=== PATIENT | male | born 1995 | race Caucasian/White ===

== ENCOUNTER 2017-11-05 18:09 | Emergency (ER) | payer SELFPAY | END 2017-11-05 19:13 | disposition left against medical advice (07) | LOC: ERS 18:09 | DX: Z53.21 Procedure and treatment not carried out due to patient leaving prior to being seen by health care provider (principal) ==

== ENCOUNTER 2020-05-17 22:07 | Inpatient (IN) | payer OTHER ==
[2020-05-17] MEDS ORDERED: Acetaminophen 500 MG TAB ONE (22:21)
[2020-05-17 23:07] LABS: #Basophils 0.1 thou/uL (0.0-0.2); #Eosinphils 0.2 thou/uL (0.0-0.7); #Lymphocytes 2.3 thou/uL (1.20-3.40); #Monocytes 1.5 thou/uL (0.11-0.59); #Neutrophils 12.2 thou/uL (1.40-6.50); %Basophils 0.8 % (0.0-1.0); %Lymphocytes 14.1 % (21.0-51.0); %Monocytes 9.5 % (0.0-10.0); %Neutrophils 74.7 % (42.0-75.0); Hemoglobin 14.6 g/dL (14.0-18.0); Mean Corpuscular HGB CONC 34.4 g/dL (32.0-36.0); Mean Corpuscular Hemoglobin 32.6 pg (27.0-31.0); Mean Corpuscular Volume 94.7 fL (78.0-98.0); Mean Platelet Volume 9.5 fL (7.4-10.4); Platelet Count 366 thou/uL (130-400); RBC Distribution Width 11.6 % (11.5-14.5); Red Blood Cell (RBC) Count 4.47 mill/uL (4.70-6.10); White Blood Cell (WBC) Count 16.3 thou/uL (4.8-10.8)
--- NOTE | 2020-05-17 23:30 | RAD ---
XR Chest 1 View Portable History: Fever Comparison: Radiograph 2014 Findings: Lungs are clear. No pneumothorax. No effusion. Cardiac silhouette and mediastinal contours are within normal limits. Impression: No acute intrathoracic abnormality.
[2020-05-17 23:34] LABS: ALT (SGPT) 31 U/L (8-55); AST (SGOT) 27 U/L (5-34); Albumin 4.6 g/dL (3.5-5.0); Alkaline Phosphatase 106 U/L (40-110); Anion Gap 17 mmol/L (10-20); BUN (Urea Nitrogen) 14 mg/dL (8.9-20.6); Bilirubin, Total 0.2 mg/dL (0.2-1.2); Calc. Creatinine Clearance 0 mL/min (70-130); Calcium 9.7 mg/dL (7.8-10.44); Carbon Dioxide 24 mmol/L (22-29); Chloride 104 mmol/L (98-107); Estimated GFR-MDRD 59; Globulin 3.8 g/dL (2.4-3.5); Glucose 99 mg/dL (70-105); Potassium 4.5 mmol/L (3.5-5.1); Protein, Total 8.4 g/dL (6.0-8.3); Sodium 140 mmol/L (136-145)
[2020-05-17 23:36] LABS: Lactic Acid 1.8 mmol/L (0.5-2.2)
[2020-05-18 00:29] LABS: HIV (1/2) Antibody/Antigen Non-Reactive (NonReactive); HIV 1/2 INDEX 0.26 S/CO (<1.00)
[2020-05-18] MEDS ORDERED: Ibuprofen 800 MG TAB ONE (00:38)
[2020-05-18] MEDS ORDERED: Acyclovir 800 mg Tablet PO SCH (00:45)
[2020-05-18 01:20] LABS: Bilirubin Negative (Negative); Blood, Urine Negative (Negative); Glucose, Urine (Dipstick) Negative (Negative); Ketone, Urine Negative (Negative); Leukocyte Negative (Negative); Nitrite Negative (Negative); Protein, Urine (Dipstick) Negative (Neg-Trace); Urobilinogen 0.2 mg/dL (Less than 2); pH, Urine 7.5 (5.0-9.0)
[2020-05-18 01:21] LABS: Clarity Clear (Clear)
[2020-05-18] MEDS ORDERED: Acetaminophen 500 MG TAB ONE (05:12)
[2020-05-18 06:03] VITALS: BMI 29.3
[2020-05-18] MEDS ORDERED: Senokot S 8.6-50 MG TAB PO PRN (07:57)
[2020-05-18] MEDS: Sodium Chloride 0.9% 1,000 ML IV SCH ×2 (08:20→18:32)
[2020-05-18] MEDS: Acetaminophen 325 MG TAB PO PRN ×3 (08:21→20:20)
[2020-05-18] MEDS: Enoxaparin Sodium 40 MG/0.4 ML SYRINGE SC SCH (08:21)
[2020-05-18] MEDS ORDERED: Ondansetron PF 4 MG/2 ML Vial IVP PRN (08:58)
[2020-05-18] MEDS ORDERED: Calamine/Zinc Oxide 177 ML LOTION TP PRN (10:40)
[2020-05-18] MEDS ORDERED: Ibuprofen 200 MG TAB PO PRN (11:02)
[2020-05-18] MEDS ORDERED: Vancomycin 1.5 GRAM/300 ML BAG 1.5 GM in Premix Bag 1 BAG IVPB SCH (11:30)
[2020-05-18] MEDS ORDERED: Ibuprofen 200 MG TAB PO SCH (11:30)
[2020-05-18] MEDS ORDERED: [UNRECOGNIZED DRUG - REMARK] IVPB PRN (11:39)
[2020-05-18] MEDS ORDERED: SODIUM CHLORIDE 0.9% IVPB SCH (14:00)
[2020-05-18] MEDS ORDERED: ACYCLOVIR SODIUM IVPB SCH (14:00)
[2020-05-18] MEDS ORDERED: valACYclovir 500 MG TAB PO SCH ×2 (15:00)
[2020-05-18] MEDS ORDERED: Sodium Chloride 0.9% 1,000 ML IV SCH (16:15)
[2020-05-18] MEDS: Ibuprofen 600 MG TAB PO PRN (18:51)
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
[2020-05-18] MEDS ORDERED: methylPREDNISolone Sod Succ 40 MG VIAL IVP SCH (19:30)
[2020-05-18] MEDS: SODIUM CHLORIDE 0.9% IVPB SCH (20:20)
[2020-05-18] MEDS: Azithromycin 500 MG in Sodium Chloride 0.9% 250 ML 250 ML IVPB SCH (20:20)
[2020-05-18] MEDS: ACYCLOVIR SODIUM IVPB SCH (20:20)
[2020-05-18] MEDS ORDERED: Vancomycin HCl 1.25 GM in Sodium Chloride 0.9% 250 ML 250 ML IVPB SCH (21:00)
[2020-05-18] MEDS: Vancomycin 1.5 GRAM/300 ML BAG 1.5 GM in Premix Bag 1 BAG IVPB SCH (23:49)
[2020-05-19] MEDS: Acetaminophen 325 MG TAB PO PRN ×4 (01:01→19:53)
[2020-05-19] MEDS ORDERED: cefTRIAXone\\ROCEPHIN 2 GM in Sodium Chloride 0.9% 100 ML IVPB SCH (02:00)
[2020-05-19] MEDS: Sodium Chloride 0.9% 1,000 ML IV SCH ×4 (03:43→22:11)
[2020-05-19] MEDS: Ibuprofen 600 MG TAB PO PRN ×3 (03:53→15:14)
[2020-05-19] MEDS: ACYCLOVIR SODIUM IVPB SCH ×3 (05:13→22:10)
[2020-05-19] MEDS: SODIUM CHLORIDE 0.9% IVPB SCH ×3 (05:13→22:10)
[2020-05-19 05:23] LABS: ALT (SGPT) 24 U/L (8-55); AST (SGOT) 21 U/L (5-34); Albumin 3.6 g/dL (3.5-5.0); Alkaline Phosphatase 69 U/L (40-110); Anion Gap 14 mmol/L (10-20); BUN (Urea Nitrogen) 10 mg/dL (8.9-20.6); Bilirubin, Total 0.3 mg/dL (0.2-1.2); Calc. Creatinine Clearance 127 mL/min (70-130); Calcium 8.1 mg/dL (7.8-10.44); Carbon Dioxide 21 mmol/L (22-29); Chloride 108 mmol/L (98-107); Estimated GFR-MDRD 65; Globulin 2.9 g/dL (2.4-3.5); Glucose 130 mg/dL (70-105); Potassium 3.7 mmol/L (3.5-5.1); Protein, Total 6.5 g/dL (6.0-8.3); Sodium 139 mmol/L (136-145)
[2020-05-19 06:28] LABS: Band 37 % (5-11); Hemoglobin 12.7 g/dL (14.0-18.0); Lymphocytes 6 % (21-51); MDiff Complete? YES; Mean Corpuscular HGB CONC 31.6 g/dL (32.0-36.0); Mean Corpuscular Hemoglobin 30.1 pg (27.0-31.0); Mean Corpuscular Volume 95.2 fL (78.0-98.0); Mean Platelet Volume 9.7 fL (7.4-10.4); Monocytes 3 % (0-10); Neutrophil 54 % (42-75); Platelet Count 299 thou/uL (130-400); RBC Distribution Width 12.1 % (11.5-14.5); Red Blood Cell (RBC) Count 4.22 mill/uL (4.70-6.10); White Blood Cell (WBC) Count 38.3 thou/uL (4.8-10.8)
[2020-05-19] MEDS: Enoxaparin Sodium 40 MG/0.4 ML SYRINGE SC SCH (08:15)
[2020-05-19] MEDS ORDERED: methylPREDNISolone Sod Succ 40 MG VIAL IVP SCH (09:00)
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
[2020-05-19] MEDS: Vancomycin 1.5 GRAM/300 ML BAG 1.5 GM in Premix Bag 1 BAG IVPB SCH (13:12)
[2020-05-19] MEDS: methylPREDNISolone Sod Succ 40 MG VIAL IVP SCH ×2 (13:13→22:07)
[2020-05-19] MEDS ORDERED: Lidocaine 1% (PF) 30 ML VIAL SC SCH (15:30)
[2020-05-19] MEDS ORDERED: Lidocaine 1% (PF) 30 ML VIAL ONE (15:31)
[2020-05-19] MEDS ORDERED: Lidocaine 1% w/Epinephrine 1:100K 20 ML VIAL IJ SCH (15:45)
[2020-05-19] MEDS ORDERED: Aluminum & Magnesium Hydroxide 60 ML, Lidocaine 2% Viscous Solution 30 ML, diphenhydrAM... SSW PRN (16:07)
[2020-05-19 16:08] LABS: SARS-CoV-2 MS2 Positive; SARS-CoV-2 N Gene Negative; SARS-CoV-2 S Gene Negative; SARS-CoV-2 orf1ab Negative
--- NOTE | 2020-05-19 16:09 | PDOC.HOSPP ---
- Subjective Encounter Date: 05/19/20 Encounter Time: 16:07 Subjective: pt up in bed has worsening lesions all over - Objective Vital Signs & Weight: Vital Signs (12 hours) Temp Pulse Resp BP Pulse Ox 05/19/20 15:54 101.9 F H 05/19/20 15:10 102.0 F H 126 H 18 122/56 L 98 05/19/20 13:30 103.1 F H 123 H 18 117/57 L 98 05/19/20 10:20 99.3 F 05/19/20 08:40 101.1 F H 121 H 20 133/83 99 05/19/20 08:05 99 05/19/20 05:15 100.9 F H Weight Weight 235 lb I&O: 05/18/20 05/19/20 05/20/20 06:59 06:59 06:59 Intake Total 250 Output Total 1999 Balance -1750 Result Diagrams: 05/19/20 04:44 05/19/20 04:44 Hospitalist ROS - Review of Systems Cardiovascular: denies: chest pain, palpitations, orthopnea, paroxysmal noc. dyspnea, edema, light headedness, other Gastrointestinal: denies: nausea, vomiting, abdominal pain, diarrhea, constipation, melena, hematochezia, other Genitourinary: denies: dysuria, frequency, incontinence, hematuria, retention, other - Medication Medications: Active Medications Generic Name Dose Route Start Last Admin Trade Name Freq PRN Reason Stop Dose Admin Acetaminophen 650 mg 05/18/20 07:57 05/19/20 13:32 Tylenol PO 650 mg Q4H PRN Administration Headache/Fever/Mild Pain (1-3) Enoxaparin Sodium 40 mg 05/18/20 09:00 05/19/20 08:15 Lovenox SC 40 mg 0900 YASMANI Administration Azithromycin 500 mg/ Sodium 250 mls @ 250 mls/hr 05/18/20 20:00 05/18/20 20: 20 Chloride IVPB 250 mls Q24HR YASMANI Administration Acyclovir Sodium 845 mg/ 266.9 mls @ 266.9 mls/hr 05/18/20 22:00 05/19/20 15: 02 Sodium Chloride IVPB 266.9 mls Q8HR YASMANI Administration Vancomycin HCl 1.5 gm/ Device 300 mls @ 200 mls/hr 05/18/20 23:59 05/19/20 13 :12 IVPB 300 mls 1200,2359 YASMANI Administration Sodium Chloride 1,000 mls @ 150 mls/hr 05/19/20 06:45 05/19/20 13:33 Normal Saline 0.9% IV Not Given .Q6H40M YASMANI Ibuprofen 600 mg 05/18/20 18:18 05/19/20 15:14 Motrin PO 600 mg Q6H PRN Administration Fever > 101 Methylprednisolone Sodium Succinate 20 mg 05/19/20 14:00 05/19/20 13:13 Solu-Medrol IVP 20 mg Q8HR YASMANI Administration Sodium Chloride 10 ml 05/18/20 09:00 05/19/20 08:16 Flush - Normal Saline IVF 10 ml Q12HR YASMANI Administration - Exam Neck: negative: supple, symmetric, no JVD, no thyromegaly, no lymphadenopathy, no carotid bruit, JVD Heart: negative: RRR, no murmur, no gallops, no rubs, normal peripheral pulses, irregular, diminshed peripheral pulses, murmur present, II/IV, III/IV Respiratory: negative: CTAB, no wheezes, no rales, no ronchi, normal chest expansion, no tachypnea, normal percussion, rales, rhonchi, tachypneic, wheezes Gastrointestinal: negative: soft, non-tender, non-distended, normal bowel sounds , no palpable masses, no hepatomegaly, no splenomegaly, no bruit, no guarding, no rigidity, tender to palpation, distended, diminished bowl sounds, voluntary guarding Skin - other findings: pustules all over Hosp A/P (1) PLEVA (pityriasis lichenoides et varioliformis acuta) Code(s): L41.0 - PITYRIASIS LICHENOIDES ET VARIOLIFORMIS ACUTA Status: Acute (2) Sepsis Code(s): A41.9 - SEPSIS, UNSPECIFIED ORGANISM Status: Acute (3) Sinus tachycardia Code(s): R00.0 - TACHYCARDIA, UNSPECIFIED Status: Acute (4) Rash Code(s): R21 - RASH AND OTHER NONSPECIFIC SKIN ERUPTION Status: Acute - Plan will start pt on iv pain meds. will continue fluids for now. unable to get a skin biopsy today will get one on Friday. I spoke with residents who will get a skin biopsy on Friday. will continue abx for now. will continue vanco/azith and steroids.
[2020-05-19] MEDS: Morphine 4 MG/ML VIAL SLOW IVP PRN ×2 (16:57→21:01)
[2020-05-19] MEDS: Aluminum & Magnesium Hydroxide 60 ML, Lidocaine 2% Viscous Solution 30 ML, diphenhydrAM... SSW PRN ×2 (16:58→21:02)
--- NOTE | 2020-05-19 17:10 | PRG ---
DATE OF SERVICE: 05/19/2020 SUBJECTIVE: Mr. Merida is feeling a lot of pain and pruritus. The pain is mostly in the throat with difficulty swallowing. He denies headaches. No difficulty breathing. No abdominal pain. Voiding without difficulty. OBJECTIVE: VITAL SIGNS: Still continues to have temperature elevation up to 103, blood pressure 120/56, pulse 126, respirations 18, O2 saturation 98% SKIN: With diffuse exanthematous pustulosis as well as enanthem. LUNGS: Clear. HEART: S1 and S2. Regular rate. ABDOMEN: Soft. Not distended or tender. EXTREMITIES: Moves extremities equally. LABORATORY DATA: White cell count is 38,000, hemoglobin 12.7, platelets 299 with 37% bands. Sodium 139, creatinine 1.33. The patient has had 2 COVID test negative. Biopsy is pending. ASSESSMENT AND DISCUSSION: Acute pustular skin eruption with erythema, leukemoid reaction, and fever. 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 He took it for about a week about 10 days before admission, and a few days before, the rash developed. This makes it very likely that what he has is actually acute generalized exanthematous pustulosis or AGEP. Valproic acid could be the mood stabilizer, that was given to him, and it has been associated with this sort of reaction. The drug has been discontinued, and we will maintain the corticosteroids and the antimicrobial therapy waiting on the assays submitted and continue IV fluids. So, PLEVA is less likely. Job ID: [id number]
--- NOTE | 2020-05-19 18:40 | PDOC.EVN ---
Event Note - Event Note Event Note: spoke with Dr Laguna apparently pt took some pink pill which most likely is valporic acid. pt was afraid to express this since he did not want to get in trouble.
[2020-05-19] MEDS: Azithromycin 500 MG in Sodium Chloride 0.9% 250 ML 250 ML IVPB SCH (21:03)
[2020-05-19 23:31] LABS: Vancomycin, Trough 9.6 ug/mL
[2020-05-20] MEDS: Vancomycin 1.5 GRAM/300 ML BAG 1.5 GM in Premix Bag 1 BAG IVPB SCH ×4 (00:18→23:44)
[2020-05-20] MEDS: Morphine 4 MG/ML VIAL SLOW IVP PRN ×5 (01:13→19:20)
[2020-05-20] MEDS: Ibuprofen 600 MG TAB PO PRN ×2 (01:13→23:51)
[2020-05-20] MEDS: Aluminum & Magnesium Hydroxide 60 ML, Lidocaine 2% Viscous Solution 30 ML, diphenhydrAM... SSW PRN ×5 (01:14→22:05)
[2020-05-20] MEDS: Acetaminophen 325 MG TAB PO PRN ×3 (01:24→15:07)
[2020-05-20] MEDS: Sodium Chloride 0.9% 1,000 ML IV SCH ×4 (04:42→22:06)
[2020-05-20 05:01] LABS: Anion Gap 11 mmol/L (10-20); BUN (Urea Nitrogen) 11 mg/dL (8.9-20.6); Calc. Creatinine Clearance 158 mL/min (70-130); Calcium 8.3 mg/dL (7.8-10.44); Carbon Dioxide 22 mmol/L (22-29); Chloride 109 mmol/L (98-107); Estimated GFR-MDRD 84; Glucose 130 mg/dL (70-105); Sodium 138 mmol/L (136-145)
[2020-05-20] MEDS: methylPREDNISolone Sod Succ 40 MG VIAL IVP SCH (05:08)
[2020-05-20 05:39] LABS: Band 38 % (5-11); Hemoglobin 12.2 g/dL (14.0-18.0); Lymphocytes 7 % (21-51); MDiff Complete? YES; Mean Corpuscular HGB CONC 32.3 g/dL (32.0-36.0); Mean Corpuscular Hemoglobin 31.3 pg (27.0-31.0); Mean Corpuscular Volume 96.7 fL (78.0-98.0); Mean Platelet Volume 9.8 fL (7.4-10.4); Metamyelocyte 1 % (0-0); Monocytes 5 % (0-10); Neutrophil 49 % (42-75); Platelet Count 251 thou/uL (130-400); Platelet Morphology Comment Appears Adequate; RBC Distribution Width 12.2 % (11.5-14.5); Red Blood Cell (RBC) Count 3.89 mill/uL (4.70-6.10); White Blood Cell (WBC) Count 28.1 thou/uL (4.8-10.8)
[2020-05-20] MEDS: ACYCLOVIR SODIUM IVPB SCH ×2 (05:58→22:04)
[2020-05-20] MEDS: SODIUM CHLORIDE 0.9% IVPB SCH ×2 (05:58→22:04)
[2020-05-20] MEDS: Enoxaparin Sodium 40 MG/0.4 ML SYRINGE SC SCH (09:26)
[2020-05-20] MEDS: cefTRIAXone\\ROCEPHIN 2 GM in Sodium Chloride 0.9% 100 ML IVPB SCH (11:10)
[2020-05-20] MEDS ORDERED: SODIUM CHLORIDE 0.9% IVPB SCH ×3 (14:00→22:00)
[2020-05-20] MEDS ORDERED: ACYCLOVIR SODIUM IVPB SCH ×3 (14:00→22:00)
--- NOTE | 2020-05-20 16:13 | PDOC.HOSPP ---
- Subjective Encounter Date: 05/20/20 Encounter Time: 16:09 Subjective: THe patient states he has sore throat, difficulty eating. He did have fever prior to admission. He reports cold sores in the past, and used to get them occasionally every few years. He states that prior to admission he did have a lesion on his face and showered normally and used the same towel on multiple parts of his body he reports itching, burning and tingling - Objective Vital Signs & Weight: Vital Signs (12 hours) Temp Pulse Resp BP Pulse Ox 05/20/20 11:20 98.0 F 101 H 19 132/79 97 05/20/20 09:45 98.2 F 101 H 20 124/65 95 Weight Weight 235 lb I&O: 05/19/20 05/20/20 05/21/20 06:59 06:59 06:59 Intake Total 250 5945 Output Total 1999 5300 Balance -1750 645 Result Diagrams: 05/20/20 04:20 05/20/20 04:20 Hospitalist ROS - Medication Medications: Active Medications Generic Name Dose Route Start Last Admin Trade Name Freq PRN Reason Stop Dose Admin Acetaminophen 650 mg 05/18/20 07:57 05/20/20 15:07 Tylenol PO 650 mg Q4H PRN Administration Headache/Fever/Mild Pain (1-3) Al Hydroxide/Mg Hydroxide 60 0 ml 05/19/20 16:30 05/20/20 11:10 ml/ Lidocaine HCl 30 ml/ SSW 10 ml Diphenhydramine HCl 75 mg PRN PRN Administration Mouth Irritation Enoxaparin Sodium 40 mg 05/18/20 09:00 05/20/20 09:26 Lovenox SC 40 mg 0900 YASMANI Administration Azithromycin 500 mg/ Sodium 250 mls @ 250 mls/hr 05/18/20 20:00 05/19/20 21: 03 Chloride IVPB 250 mls Q24HR YASMANI Administration Sodium Chloride 1,000 mls @ 150 mls/hr 05/19/20 06:45 05/20/20 15:06 Normal Saline 0.9% IV 1,000 mls .Q6H40M YASMANI Administration Ceftriaxone Sodium 2 gm/ 100 mls @ 200 mls/hr 05/20/20 09:00 05/20/20 11:10 Sodium Chloride IVPB 100 mls 0900 YASMANI Administration Vancomycin HCl 1.5 gm/ Device 300 mls @ 200 mls/hr 05/19/20 23:59 05/20/20 09 :26 IVPB 300 mls 0800,1600,2359 YASMANI Administration Ibuprofen 600 mg 05/18/20 18:18 05/20/20 01:13 Motrin PO 600 mg Q6H PRN Administration Fever > 101 Morphine Sulfate 4 mg 05/19/20 15:58 05/20/20 15:16 Morphine SLOW IVP 4 mg Q4H PRN Administration Moderate Pain (4-6) Sodium Chloride 10 ml 05/18/20 09:00 05/20/20 09:27 Flush - Normal Saline IVF 10 ml Q12HR YASMANI Administration Sodium Chloride 10 ml 05/18/20 08:03 05/20/20 05:08 Flush - Normal Saline IVF 10 ml PRN PRN Administration Saline Flush - Exam General Appearance: NAD, awake alert Eye: PERRL, anicteric sclera ENT: normocephalic atraumatic, no oropharyngeal lesions Neck: supple, no JVD Heart: RRR, no murmur, no gallops, no rubs Respiratory: CTAB, no wheezes, no rales, no ronchi, no tachypnea Gastrointestinal: soft, non-tender, non-distended Extremities: no cyanosis, no clubbing, no edema Skin - other findings: diffuse vesicular/pustular lesions, erythema all over body Neurological: cranial nerve grossly intact, normal sensation to touch, no focal deficits, no new deficit Musculoskeletal: normal tone, normal strength, no muscle wasting Hosp A/P - Plan This is 24 year old male who presents with fever, decreased appetite, diffuse pustuar/vesicular rash #Diffuse pustular/vesicular rash - possibly shingles/chickenpox vs herpes gladiatorum vs impetigo/bacterial infection vs pemphigus? - continue IV acyclovir. WBC improving - will discontinue IV steroids since patient reports no improvement - continue empiric vancomycin, ceftriaxone and azithromycin - send HSV PCR and VZV pcr and tzank smear. Try to unroof vesicle if possible - patient to get punch biopsy on Friday #Leukocytosis - improving, continue antiviral and antibiotics #Anemia - stable, hemoglobin 12 #Acute Kidney Injury - resolved
[2020-05-20] MEDS: Azithromycin 500 MG in Sodium Chloride 0.9% 250 ML 250 ML IVPB SCH (20:15)
[2020-05-20] MEDS ORDERED: Fentanyl 100 MCG/2 ML VIAL SLOW IVP PRN (21:15)
[2020-05-20 23:26] LABS: Vancomycin, Trough 19.6 ug/mL
[2020-05-21] MEDS: Morphine 4 MG/ML VIAL SLOW IVP PRN ×6 (00:16→21:34)
[2020-05-21 04:45] LABS: Hemoglobin 12.9 g/dL (14.0-18.0); Mean Corpuscular HGB CONC 33.9 g/dL (32.0-36.0); Mean Corpuscular Hemoglobin 32.4 pg (27.0-31.0); Mean Corpuscular Volume 95.4 fL (78.0-98.0); Mean Platelet Volume 9.3 fL (7.4-10.4); Platelet Count 291 thou/uL (130-400); RBC Distribution Width 12.3 % (11.5-14.5); Red Blood Cell (RBC) Count 3.98 mill/uL (4.70-6.10); White Blood Cell (WBC) Count 19.5 thou/uL (4.8-10.8)
[2020-05-21 05:07] LABS: Anion Gap 14 mmol/L (10-20); BUN (Urea Nitrogen) 14 mg/dL (8.9-20.6); Calc. Creatinine Clearance 129 mL/min (70-130); Calcium 8.3 mg/dL (7.8-10.44); Carbon Dioxide 22 mmol/L (22-29); Chloride 104 mmol/L (98-107); Estimated GFR-MDRD 66; Glucose 109 mg/dL (70-105); Potassium 3.9 mmol/L (3.5-5.1); Sodium 136 mmol/L (136-145)
[2020-05-21] MEDS: Sodium Chloride 0.9% 1,000 ML IV SCH ×2 (05:24→16:53)
[2020-05-21] MEDS: ACYCLOVIR SODIUM IVPB SCH ×2 (06:39→15:05)
[2020-05-21] MEDS: SODIUM CHLORIDE 0.9% IVPB SCH ×2 (06:39→15:05)
[2020-05-21] MEDS: Enoxaparin Sodium 40 MG/0.4 ML SYRINGE SC SCH (08:55)
[2020-05-21] MEDS: Vancomycin 1.5 GRAM/300 ML BAG 1.5 GM in Premix Bag 1 BAG IVPB SCH (08:55)
[2020-05-21] MEDS: Ibuprofen 600 MG TAB PO PRN ×3 (08:55→23:49)
[2020-05-21] MEDS ORDERED: diphenhydrAMINE 25 MG in Sodium Chloride 0.9% 50 ML IVPB SCH (09:45)
[2020-05-21] MEDS: Acetaminophen 325 MG TAB PO PRN ×2 (11:51→21:35)
--- NOTE | 2020-05-21 12:12 | RAD ---
CHEST 1 VIEW: HISTORY: Hypoxia. COMPARISON: 05/17/2020 exam. FINDINGS: Heart size and mediastinum are within normal limits. The lungs appear clear of any infiltrative proc ess. IMPRESSION: No active intrathoracic disease. POS: MIKE
[2020-05-21] MEDS ORDERED: Pantoprazole 40 MG VIAL IVP SCH (12:45)
[2020-05-21] MEDS: cefTRIAXone\\ROCEPHIN 2 GM in Sodium Chloride 0.9% 100 ML IVPB SCH (13:09)
--- NOTE | 2020-05-21 15:10 | PDOC.HOSPP ---
- Subjective Encounter Date: 05/21/20 Encounter Time: 12:00 Subjective: The patient was noted to be slightly short of breath this morning, required nasal cannula. He was also tachycardic Patient feels his sore throat has improved some. He denies any itching. He still has trouble swallowing. He had low grade temp of 100.3 today He denies new sexual partners, states he has been in assisted for 9 months The patient states he never took any cell mates medication, denies taking valproic acid - Objective Vital Signs & Weight: Vital Signs (12 hours) Temp Pulse Resp BP Pulse Ox 05/21/20 11:50 100.3 F H 112 H 16 108/55 L 97 05/21/20 09:20 99.8 F H 138 H 20 136/75 92 L 05/21/20 04:15 98.7 F 109 H 21 H 130/78 94 L Weight Weight 235 lb I&O: 05/20/20 05/21/20 05/22/20 06:59 06:59 06:59 Intake Total 5945 Output Total 5300 Balance 645 Result Diagrams: 05/21/20 04:33 05/21/20 04:33 Hospitalist ROS - Review of Systems Constitutional: reports: fever Respiratory: denies: cough, dry, shortness of breath, pleuritic pain - Medication Medications: Active Medications Generic Name Dose Route Start Last Admin Trade Name Freq PRN Reason Stop Dose Admin Acetaminophen 650 mg 05/18/20 07:57 05/21/20 11:51 Tylenol PO 650 mg Q4H PRN Administration Headache/Fever/Mild Pain (1-3) Al Hydroxide/Mg Hydroxide 60 0 ml 05/19/20 16:30 05/20/20 22:05 ml/ Lidocaine HCl 30 ml/ SSW 10 ml Diphenhydramine HCl 75 mg PRN PRN Administration Mouth Irritation Enoxaparin Sodium 40 mg 05/18/20 09:00 05/21/20 08:55 Lovenox SC 40 mg 0900 YASMANI Administration Azithromycin 500 mg/ Sodium 250 mls @ 250 mls/hr 05/18/20 20:00 05/20/20 20: 15 Chloride IVPB 250 mls Q24HR YASMANI Administration Sodium Chloride 1,000 mls @ 150 mls/hr 05/19/20 06:45 05/21/20 05:24 Normal Saline 0.9% IV Not Given .Q6H40M YASMANI Ceftriaxone Sodium 2 gm/ 100 mls @ 200 mls/hr 05/20/20 09:00 05/21/20 13:09 Sodium Chloride IVPB 100 mls 0900 YASMANI Administration Vancomycin HCl 1.5 gm/ Device 300 mls @ 200 mls/hr 05/19/20 23:59 05/21/20 08 :55 IVPB 300 mls 0800,1600,2359 YASMANI Administration Acyclovir Sodium 845 mg/ 266.9 mls @ 228.337 mls/hr 05/20/20 22:00 05/21/20 15:05 Sodium Chloride IVPB 266.9 mls Q8HR YASMANI Administration Ibuprofen 600 mg 05/18/20 18:18 05/21/20 08:55 Motrin PO 600 mg Q6H PRN Administration Fever > 101 Morphine Sulfate 4 mg 05/19/20 15:58 05/21/20 13:09 Morphine SLOW IVP 4 mg Q4H PRN Administration Moderate Pain (4-6) Sodium Chloride 10 ml 05/18/20 09:00 05/21/20 13:43 Flush - Normal Saline IVF 10 ml Q12HR YASMANI Administration Sodium Chloride 10 ml 05/18/20 08:03 05/20/20 05:08 Flush - Normal Saline IVF 10 ml PRN PRN Administration Saline Flush - Exam General Appearance: NAD, awake alert Eye: PERRL, anicteric sclera ENT: normocephalic atraumatic, no oropharyngeal lesions Neck: no JVD Heart: RRR, no rubs Respiratory: no rales Gastrointestinal: soft, non-tender, non-distended, normal bowel sounds Extremities: no cyanosis, no clubbing, no edema Extremities - other findings: skin appears more of a darker red Skin - other findings: multiple pustular lesions on face starting to dry. Erythema multiforme leg Musculoskeletal: normal tone, normal strength, no muscle wasting Psychiatric: A&O x 3 Hosp A/P - Plan This is 24 year old male who presents with fever, decreased appetite, diffuse pustuar/vesicular rash #Diffuse pustular/vesicular rash - possibly shingles/chickenpox vs herpes gladiatorum vs impetigo/bacterial infection vs pemphigus? - continue IV acyclovir. WBC improving to 19 - stopped steroids. Will add benadryl prn and claritin prn for itching - HSV PCR/VZV PCR and Tzanck smear pending. HSV serology pending. Will order VZV serology, patient does not recall if he has had chickenpox in the past - bacterial culture shows gram + rods, gram + cocci, gram variable rods. Will follow final culture - will check RPR as well - punch biopsy on Friday Acute hypoxic respiratory failure - repeat chest X ray today normal - will stop IV fluids in case there is component of fluid overload #Odynophagia - likely secondary to viral infection - diet as tolerated #Anemia - stable, hemoglobin 12 - check B12/folate #Acute Kidney Injury - creatinine up to 1.3, will stop IV fluids and reassess Dispo: possibly d/c 1-2 days pending improvement in oral intake and crusting of lesions
[2020-05-21 16:57] LABS: Syphilis Antibody Nonreactive (Nonreactive); Syphilis Antibody Index 0.08 S/CO (<1.00 Non-Reactive)
[2020-05-21 17:05] LABS: Ferritin 641.42 ng/mL (22-322)
--- NOTE | 2020-05-21 17:09 | PRG ---
DATE OF SERVICE: 05/21/2020 SUBJECTIVE: Fuad is feeling little better. He is able to swallow fluids better and solids as well. Skin not itching as much, not burning as much. No diarrhea. Voiding without difficulty. OBJECTIVE: VITAL SIGNS: Still having temperature elevation is 103.2 yesterday at 11:00 p.m., but overall temperature curve has improved significantly and pulse is 112, respiratory rate 16, O2 saturation 97, and BP 108/55. Still diffuse exanthematous pustulosis. LABORATORY DATA: White cell count 19.5, hemoglobin 12.9, and platelets 291. Creatinine is 1.31. He has 2 COVID test negative thus far. Cultures from the face and tonsils are not remarkable, just normal kady. ASSESSMENT AND DISCUSSION: Acute pustular skin eruption likely exanthematous pustulosis due to valproic acid. I think a biopsy is going to be carried out tomorrow to confirm diagnosis. Continue corticosteroids. We will go ahead and discontinued some of the drugs including the acyclovir. I will discontinue azithromycin and vancomycin. Job ID: [id number] [facility]PITALGonzalo
[2020-05-21 19:31] LABS: Amphetamine Not Detected (NotDetected); Barbiturates Screen Not Detected (NotDetected); Benzodiazepine Screen Not Detected (NotDetected); Cocaine Metabolite Screen Not Detected (NotDetected); Medtox Control Line Valid? VALID (VALID); Medtox Reader # READER 4; Methadone Not Detected (NotDetected); Methamphetamine Not Detected (NotDetected); Opiate Screen Detected (NotDetected); Oxycodone Screen Not Detected (NotDetected); Phencyclidine (PCP) Not Detected (NotDetected); THC/Cannabinoid Screen Not Detected (NotDetected); Tricyclic Screen Not Detected (NotDetected)
[2020-05-21] MEDS: Pantoprazole 40 MG VIAL IVP SCH (20:11)
[2020-05-21] MEDS: Aluminum & Magnesium Hydroxide 60 ML, Lidocaine 2% Viscous Solution 30 ML, diphenhydrAM... SSW PRN (20:12)
[2020-05-21 23:42] LABS: Vancomycin, Trough 6.5 ug/mL
[2020-05-22] MEDS: Morphine 4 MG/ML VIAL SLOW IVP PRN ×5 (03:16→21:18)
[2020-05-22] MEDS: Acetaminophen 325 MG TAB PO PRN ×2 (03:33→11:52)
[2020-05-22 04:54] LABS: Hemoglobin 11.7 g/dL (14.0-18.0); Mean Corpuscular HGB CONC 33.1 g/dL (32.0-36.0); Mean Corpuscular Hemoglobin 31.2 pg (27.0-31.0); Mean Corpuscular Volume 94.3 fL (78.0-98.0); Mean Platelet Volume 9.4 fL (7.4-10.4); Platelet Count 252 thou/uL (130-400); RBC Distribution Width 12.6 % (11.5-14.5); Red Blood Cell (RBC) Count 3.75 mill/uL (4.70-6.10); White Blood Cell (WBC) Count 14.4 thou/uL (4.8-10.8)
[2020-05-22 05:17] LABS: Anion Gap 16 mmol/L (10-20); BUN (Urea Nitrogen) 13 mg/dL (8.9-20.6); Calc. Creatinine Clearance 142 mL/min (70-130); Calcium 8.2 mg/dL (7.8-10.44); Carbon Dioxide 21 mmol/L (22-29); Chloride 101 mmol/L (98-107); Estimated GFR-MDRD 74; Glucose 118 mg/dL (70-105); Potassium 3.6 mmol/L (3.5-5.1); Sodium 134 mmol/L (136-145)
[2020-05-22] MEDS: Pantoprazole 40 MG VIAL IVP SCH ×2 (07:45→21:17)
[2020-05-22] MEDS: Enoxaparin Sodium 40 MG/0.4 ML SYRINGE SC SCH (07:45)
[2020-05-22] MEDS: cefTRIAXone\\ROCEPHIN 2 GM in Sodium Chloride 0.9% 100 ML IVPB SCH (07:46)
--- NOTE | 2020-05-22 10:11 | EKG ---
Test Reason : Blood Pressure : / mmHG Vent. Rate : 130 BPM Atrial Rate : 130 BPM P-R Int : 128 ms QRS Dur : 084 ms QT Int : 276 ms P-R-T Axes : 020 037 001 degrees QTc Int : 406 ms Sinus tachycardia Nonspecific ST and T wave abnormality Abnormal ECG When compared with ECG of 25-OCT-2014 22:24, ST now depressed in Inferior leads ST no longer elevated in Anterior leads Nonspecific T wave abnormality now evident in Inferior leads Nonspecific T wave abnormality now evident in Anterior leads Confirmed by MAURICIO ALLEN (2) on 05/22/2020 10:11:13 AM Referred By: CHASTITY Confirmed By:MAURICIO ALLEN
[2020-05-22] MEDS ORDERED: SODIUM CHLORIDE 0.9% IVPB SCH ×3 (13:00→23:00)
[2020-05-22] MEDS ORDERED: ACYCLOVIR SODIUM IVPB SCH ×3 (13:00→23:00)
--- NOTE | 2020-05-22 14:55 | PDOC.HOSPP ---
- Subjective Encounter Date: 05/22/20 Encounter Time: 11:00 Subjective: The patient was noted to be in more pain today than yesterday. He is sleeping in his bed huddled up. He spiked fever to 104 at 12:00 He reports burning and tingling pain all over. States the only thing that has helped his pain so far is morphine - Objective Vital Signs & Weight: Vital Signs (12 hours) Temp Pulse Resp BP Pulse Ox 05/22/20 12:00 104.7 F H 138 H 20 133/68 93 L 05/22/20 08:00 99.4 F 103 H 16 125/71 96 05/22/20 06:19 97 05/22/20 03:15 100.2 F H 114 H 16 107/53 L 94 L Weight Weight 235 lb Result Diagrams: 05/22/20 04:41 05/22/20 04:41 Hospitalist ROS - Review of Systems Constitutional: denies: fever, chills - Medication Medications: Active Medications Generic Name Dose Route Start Last Admin Trade Name Freq PRN Reason Stop Dose Admin Acetaminophen 650 mg 05/18/20 07:57 05/22/20 11:52 Tylenol PO 650 mg Q4H PRN Administration Headache/Fever/Mild Pain (1-3) Al Hydroxide/Mg Hydroxide 60 0 ml 05/19/20 16:30 05/21/20 20:12 ml/ Lidocaine HCl 30 ml/ SSW 10 ml Diphenhydramine HCl 75 mg PRN PRN Administration Mouth Irritation Enoxaparin Sodium 40 mg 05/18/20 09:00 05/22/20 07:45 Lovenox SC 40 mg 0900 YASMANI Administration Ceftriaxone Sodium 2 gm/ 100 mls @ 200 mls/hr 05/20/20 09:00 05/22/20 07:46 Sodium Chloride IVPB 100 mls 0900 YASMANI Administration Ibuprofen 600 mg 05/18/20 18:18 05/21/20 23:49 Motrin PO 600 mg Q6H PRN Administration Fever > 101 Morphine Sulfate 4 mg 05/19/20 15:58 05/22/20 11:51 Morphine SLOW IVP 4 mg Q4H PRN Administration Moderate Pain (4-6) Pantoprazole Sodium 40 mg 05/21/20 21:00 05/22/20 07:45 Protonix IVP 40 mg BID YASMANI Administration Sodium Chloride 10 ml 05/18/20 09:00 05/21/20 20:12 Flush - Normal Saline IVF 10 ml Q12HR YASMANI Administration Sodium Chloride 10 ml 05/18/20 08:03 05/20/20 05:08 Flush - Normal Saline IVF 10 ml PRN PRN Administration Saline Flush - Exam General Appearance: NAD, awake alert General - other findings: multiple pustules on face. Lesions appeared more dried up Eye: PERRL, anicteric sclera ENT: normocephalic atraumatic, no oropharyngeal lesions Neck: no JVD Heart: RRR, no murmur, no gallops, no rubs Respiratory: CTAB, no wheezes, no rales, no ronchi Gastrointestinal: soft, non-tender, non-distended, normal bowel sounds Extremities: no cyanosis, no clubbing, no edema Skin - other findings: multiple pustules/vesicles on face and torso. Macular lesion on extremities Hosp A/P - Plan This is 24 year old male who presents with fever, decreased appetite, diffuse pustuar/vesicular rash #Diffuse pustular/vesicular rash - possibly shingles vs herpes gladiatorum vs impetigo/bacterial infection vs pemphigus vs AGEP - was started on IV acyclovir. WBC has improved to 14. Fevers improved to 100, but temp went back up to 104 today - continue benadryl prn and claritin - COVID negative, HIV negative, syphilis negative - VZV serology and PCR and HSV serology/PCR pending - bacterial culture shows gram + rods, gram + cocci, gram variable rods - punch biopsy done today with immunofluorescence - azithromycin, vancomycin discontinued by ID. Continue ceftriaxone. Procal negative - due to worsening pain/burning and spike in fever, will resume acyclovir to evaluate for improvement Acute hypoxic respiratory failure - repeat chest X ray today normal - resolved, on room air #Odynophagia - likely secondary to viral infection - diet as tolerated #Anemia - stable, hemoglobin 12 - check B12/folate #Acute Kidney Injury - creatinine up to 1.3, will stop IV fluids and reassess Dispo: f/u punch biopsy results, improvement in fever
[2020-05-22] MEDS: Ibuprofen 600 MG TAB PO PRN (15:08)
[2020-05-23] MEDS: Acetaminophen 325 MG TAB PO PRN ×4 (00:29→17:57)
[2020-05-23 01:12] LABS: HSV-1 IgG Type Specific <0.91 index (0.00-0.90); HSV-2 IgG Type Specific Less than 0.91 index (0.00-0.90)
[2020-05-23] MEDS: Morphine 4 MG/ML VIAL SLOW IVP PRN ×6 (01:16→23:25)
[2020-05-23] MEDS: Ibuprofen 600 MG TAB PO PRN ×3 (05:07→20:58)
[2020-05-23 07:38] LABS: Hemoglobin 11.8 g/dL (14.0-18.0); Mean Corpuscular Hemoglobin 31.4 pg (27.0-31.0); Mean Corpuscular Volume 95.2 fL (78.0-98.0); Mean Platelet Volume 9.3 fL (7.4-10.4); Platelet Count 247 thou/uL (130-400); RBC Distribution Width 12.6 % (11.5-14.5); Red Blood Cell (RBC) Count 3.74 mill/uL (4.70-6.10); White Blood Cell (WBC) Count 14.9 thou/uL (4.8-10.8)
[2020-05-23 07:57] LABS: Anion Gap 17 mmol/L (10-20); BUN (Urea Nitrogen) 15 mg/dL (8.9-20.6); Calc. Creatinine Clearance 121 mL/min (70-130); Carbon Dioxide 20 mmol/L (22-29); Chloride 98 mmol/L (98-107); Estimated GFR-MDRD 62; Glucose 133 mg/dL (70-105); Potassium 3.5 mmol/L (3.5-5.1); Sodium 131 mmol/L (136-145)
[2020-05-23] MEDS: cefTRIAXone\\ROCEPHIN 2 GM in Sodium Chloride 0.9% 100 ML IVPB SCH (08:26)
[2020-05-23] MEDS: Enoxaparin Sodium 40 MG/0.4 ML SYRINGE SC SCH (08:26)
[2020-05-23] MEDS: Loratadine 10 MG TAB PO PRN (08:27)
[2020-05-23] MEDS: Pantoprazole 40 MG VIAL IVP SCH ×2 (08:28→20:58)
[2020-05-23] MEDS ORDERED: Gabapentin 100 MG CAP PO SCH ×2 (10:52→11:30)
[2020-05-23] MEDS ORDERED: valACYclovir 500 MG TAB PO SCH ×2 (10:52→11:30)
--- NOTE | 2020-05-23 12:08 | OP ---
DATE OF PROCEDURE: 05/22/2020 PREOPERATIVE DIAGNOSIS: Diffuse skin exanthem of unknown significance. POSTOPERATIVE DIAGNOSIS: Diffuse skin exanthem of unknown significance. PROCEDURE PERFORMED: Punch biopsy, 4 mm diameter x3, two on the left upper chest and one on the right upper chest. DESCRIPTION OF PROCEDURE: The area surrounding the skin lesions were prepared and draped in the usual sterile manner. The lesion was then injected with lidocaine with epinephrine for local anesthetic. Two 4 mm punch biopsies taken from the left upper chest, one 4 mm punch biopsy taken from the right upper chest. Hemostasis was achieved. The patient tolerated the procedure well. A small pressure bandage was applied to each location. FOLLOWUP: The patient tolerated the procedure well without any complication. Standard postprocedure care is explained to patient and nurse. It was explained to the nurse to keep a Band-Aid with slight pressure over the areas of the punch biopsies, who agrees with this. Attending physician, Dr. Newton, agreed with the procedure performed by nc. Job ID: [id number] MTDD
--- NOTE | 2020-05-23 14:54 | PRG ---
DATE OF SERVICE: 05/23/2020 SUBJECTIVE: The patient is having now more eye involvement, particularly of the eyelids. It is difficult for him to swallow. The skin is about the same with more intense erythroderma, coughing intermittently, but no dyspnea, no abdominal pain. Voiding without difficulty. Still having fever, particularly since the steroids were discontinued, up to 103. OBJECTIVE: VITAL SIGNS: His BP is 110/58, pulse 110, O2 saturations are 95% on room air. SKIN: Has again diffuse erythroderma somewhat sparing the lower extremities, but still some there as well. Most of the lesions are pustules, but he also has those plaque like nodular lesions in the lower extremities. He has palmar involvement with kind of a targetoid lesions. We can see eyelid involvement makes it hard for him to open his eyes. He has diffuse mucosal involvement in the oral cavity. LUNGS: Clear. HEART: S1, S2, regular rate. ABDOMEN: Soft, not distended. EXTREMITIES: He is able to move extremities equally. LABORATORY DATA: White cell count is at 14.9, hemoglobin 11.8, platelets 247, and bands were 38% on 05/20. His creatinine is 1.39 with GFR 62. The patient had herpes simplex serology submitted, which was negative. We are still waiting on the varicella zoster PCR and skin biopsy is pending as well. The skin biopsy was sent to dermatopathology, so I do not expect the results to be back in soon. ASSESSMENT: Acute pustular erythrodermic skin eruption with mucosal involvement, eye involvement with progression. 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 I favor acute generalized exanthematous pustulosis. I would consider transfer to [facility] in view of the severity of the disease. Most of those cases are managed conservatively with supportive care after discontinuation of the offending drug, which I still believe it was [place] [facility] [place] other [place], which was a mood stabilizer, possibly valproic acid. Job ID: [id number]
[2020-05-23] MEDS: Aluminum & Magnesium Hydroxide 60 ML, Lidocaine 2% Viscous Solution 30 ML, diphenhydrAM... SSW PRN (15:26)
--- NOTE | 2020-05-23 15:48 | PDOC.HOSPP ---
- Subjective Encounter Date: 05/23/20 Encounter Time: 06:00 Subjective: THe patient states that he still has trouble swallowing but can swallow better today. He reports continued burning pain, looks more comfortable compared to yesterday. HE does report some eye pain He also complains of itching Punch biopsy results pending. HSV serology negative, VZV still pending - Objective Vital Signs & Weight: Vital Signs (12 hours) Temp Pulse Resp BP Pulse Ox 05/23/20 13:00 99.5 F 110 H 20 110/58 L 95 05/23/20 08:30 98.5 F 99 16 103/55 L 97 05/23/20 08:00 98 05/23/20 05:25 103.2 F H 125 H 22 H 143/67 H 94 L Weight Weight 235 lb I&O: 05/22/20 05/23/20 05/24/20 06:59 06:59 06:59 Intake Total 5100 Output Total 3650 1200 Balance 1450 -1200 Result Diagrams: 05/23/20 07:19 05/23/20 07:19 Hospitalist ROS - Review of Systems Constitutional: reports: fever - Medication Medications: Active Medications Generic Name Dose Route Start Last Admin Trade Name Freq PRN Reason Stop Dose Admin Acetaminophen 650 mg 05/18/20 07:57 05/23/20 12:59 Tylenol PO 650 mg Q4H PRN Administration Headache/Fever/Mild Pain (1-3) Al Hydroxide/Mg Hydroxide 60 0 ml 05/19/20 16:30 05/23/20 15:26 ml/ Lidocaine HCl 30 ml/ SSW 10 ml Diphenhydramine HCl 75 mg PRN PRN Administration Mouth Irritation Enoxaparin Sodium 40 mg 05/18/20 09:00 05/23/20 08:26 Lovenox SC 40 mg 0900 YASMANI Administration Ibuprofen 600 mg 05/18/20 18:18 05/23/20 13:01 Motrin PO 600 mg Q6H PRN Administration Fever > 101 Loratadine 10 mg 05/21/20 09:42 05/23/20 08:27 Claritin PO 10 mg DAILYPRN PRN Administration Allergies Morphine Sulfate 4 mg 05/19/20 15:58 05/23/20 13:00 Morphine SLOW IVP 4 mg Q4H PRN Administration Moderate Pain (4-6) Pantoprazole Sodium 40 mg 05/21/20 21:00 05/23/20 08:28 Protonix IVP 40 mg BID YASMANI Administration Sodium Chloride 10 ml 05/18/20 09:00 05/23/20 08:29 Flush - Normal Saline IVF 10 ml Q12HR YASMANI Administration Sodium Chloride 10 ml 05/18/20 08:03 05/20/20 05:08 Flush - Normal Saline IVF 10 ml PRN PRN Administration Saline Flush - Exam General Appearance: NAD, awake alert Eye: PERRL, anicteric sclera ENT: normocephalic atraumatic, no oropharyngeal lesions Neck: supple, symmetric, no JVD Heart: RRR, no murmur, no gallops, no rubs Respiratory: CTAB, no wheezes, no rales, no ronchi Gastrointestinal: soft, non-tender, non-distended, normal bowel sounds Extremities: no cyanosis, no clubbing, no edema Extremities - other findings: macular lesions on legs Skin - other findings: vesicular/pustular lesions on face more dried. Mult pustules on chest Hosp A/P - Plan This is 24 year old male who presents with fever, decreased appetite, diffuse pustuar/vesicular rash #Diffuse pustular/vesicular rash - possibly shingles vs herpes gladiatorum vs impetigo/bacterial infection vs AGEP Vs pemphigus - was started on IV acyclovir, vanc and ceftriaxone - WBC improved from 38 to 14 - discontinued vancomycin and azithromycin. Ceftriaxone discontinued today - was getting IV acyclovir, does have some crusting of lesions on face, but pustular lesions on torso still significant. Patient states he is able to swallow pills, so given kidney dysfunction will switch to oral valtrex. HSV serology negative, PCR still pending. VZV serology and PCR still pending 0 - continue claritin and benadryl for itching - steroids discontinued - punch biopsy with immunofluorescence pending. Possibility of AGEP also there since patient reported taking depakote for [address] Laguna. Will transfer to burn center for further evaluation in [facility] - will send immunology workup Acute hypoxic respiratory failure -resolved #Odynophagia - likely secondary to viral infection - diet as tolerated #Anemia - stable, hemoglobin 12 - B12/folate normal #Acute Kidney Injury - creatinine up to 1.3. D/c IV acyclovir Dispo: f/u punch biopsy results, improvement in fever
[2020-05-23] MEDS: Fentanyl 100 MCG/2 ML VIAL SLOW IVP PRN (20:55)
[2020-05-23] MEDS: valACYclovir 500 MG TAB PO SCH (20:58)
[2020-05-23] MEDS: Gabapentin 100 MG CAP PO SCH (20:59)
[2020-05-24] MEDS: Acetaminophen 325 MG TAB PO PRN ×2 (03:12→09:50)
[2020-05-24] MEDS: Morphine 4 MG/ML VIAL SLOW IVP PRN ×5 (03:12→20:43)
[2020-05-24] MEDS: valACYclovir 500 MG TAB PO SCH ×2 (08:15→20:42)
[2020-05-24] MEDS: Enoxaparin Sodium 40 MG/0.4 ML SYRINGE SC SCH (08:15)
[2020-05-24] MEDS: Ibuprofen 600 MG TAB PO PRN ×3 (08:15→20:43)
[2020-05-24] MEDS: Loratadine 10 MG TAB PO PRN ×2 (08:15→20:43)
[2020-05-24] MEDS: Gabapentin 100 MG CAP PO SCH ×2 (08:15→20:41)
[2020-05-24] MEDS: Pantoprazole 40 MG VIAL IVP SCH ×2 (08:16→20:42)
[2020-05-24 09:35] LABS: Hemoglobin 11.8 g/dL (14.0-18.0); Mean Corpuscular HGB CONC 33.5 g/dL (32.0-36.0); Mean Corpuscular Hemoglobin 31.7 pg (27.0-31.0); Mean Corpuscular Volume 94.8 fL (78.0-98.0); Mean Platelet Volume 9.5 fL (7.4-10.4); Platelet Count 284 thou/uL (130-400); RBC Distribution Width 12.8 % (11.5-14.5); Red Blood Cell (RBC) Count 3.73 mill/uL (4.70-6.10); White Blood Cell (WBC) Count 16.1 thou/uL (4.8-10.8)
[2020-05-24] MEDS: Fentanyl 100 MCG/2 ML VIAL SLOW IVP PRN ×4 (09:50→22:10)
[2020-05-24 09:56] LABS: ALT (SGPT) 72 U/L (8-55); AST (SGOT) 88 U/L (5-34); Albumin 3.1 g/dL (3.5-5.0); Alkaline Phosphatase 57 U/L (40-110); Anion Gap 14 mmol/L (10-20); BUN (Urea Nitrogen) 18 mg/dL (8.9-20.6); Bilirubin, Total 0.4 mg/dL (0.2-1.2); Calc. Creatinine Clearance 125 mL/min (70-130); Calcium 7.8 mg/dL (7.8-10.44); Carbon Dioxide 24 mmol/L (22-29); Chloride 96 mmol/L (98-107); Estimated GFR-MDRD 64; Globulin 2.8 g/dL (2.4-3.5); Glucose 113 mg/dL (70-105); Potassium 3.7 mmol/L (3.5-5.1); Protein, Total 5.9 g/dL (6.0-8.3); Sodium 130 mmol/L (136-145)
[2020-05-24] MEDS ORDERED: Bacteriostatic Water 30 ML VIAL FS PRN (11:44)
[2020-05-24 11:54] LABS: Band 43 % (5-11); Eosinophils 1 % (0-10); Lymphocytes 11 % (21-51); MDiff Complete? YES; Metamyelocyte 3 % (0-0); Monocytes 1 % (0-10); Myelocyte 1 % (0-0); Neutrophil 40 % (42-75); Nucleated RBC 1 % (0); Platelet Morphology Comment Appears Adequate; Polychromasia SLIGHT = 2-3 cells (100X) (0-2/hpf)
--- NOTE | 2020-05-24 12:31 | PDOC.HOSPP ---
- Subjective Encounter Date: 05/24/20 Encounter Time: 10:00 Subjective: The patient still spiked fever to 103 today. He states his swallowing has improved and he is able to tolerate a diet. He still reports eye pain and pain all over his body with burning and itching. He reports that he is weeping all over his body and there is fluid leaking from his back. He reports trouble going to the bathroom because of this [facility] burn center has declined patient due to full beds He is noted to have large bullae on left and right arm and left chest which was not seen previously - Objective Vital Signs & Weight: Vital Signs (12 hours) Temp Pulse Resp BP Pulse Ox 05/24/20 09:50 100.6 F H 05/24/20 08:20 103.2 F H 127 H 18 149/66 H 94 L 05/24/20 04:00 103.1 F H 135 H 18 126/58 L 93 L Weight Weight 235 lb I&O: 05/23/20 05/24/20 05/25/20 06:59 06:59 06:59 Intake Total 5100 800 Output Total 3650 1550 Balance 1450 -750 Result Diagrams: 05/24/20 09:22 05/24/20 09:22 Hospitalist ROS - Review of Systems Constitutional: reports: fever. denies: chills Eyes: reports: pain, vision change Cardiovascular: denies: chest pain, palpitations Gastrointestinal: denies: nausea, vomiting - Medication Medications: Active Medications Generic Name Dose Route Start Last Admin Trade Name Freq PRN Reason Stop Dose Admin Acetaminophen 650 mg 05/18/20 07:57 05/24/20 09:50 Tylenol PO 650 mg Q4H PRN Administration Headache/Fever/Mild Pain (1-3) Al Hydroxide/Mg Hydroxide 60 0 ml 05/19/20 16:30 05/23/20 15:26 ml/ Lidocaine HCl 30 ml/ SSW 10 ml Diphenhydramine HCl 75 mg PRN PRN Administration Mouth Irritation Enoxaparin Sodium 40 mg 05/18/20 09:00 05/24/20 08:15 Lovenox SC 40 mg 0900 YASMANI Administration Fentanyl 50 mcg 05/23/20 12:00 05/24/20 09:50 Sublimaze SLOW IVP 50 mcg Q3H PRN Administration Severe Pain (7-10) Gabapentin 200 mg 05/23/20 21:00 05/24/20 08:15 Neurontin PO 200 mg BID YASMANI Administration Ibuprofen 600 mg 05/18/20 18:18 05/24/20 08:15 Motrin PO 600 mg Q6H PRN Administration Fever > 101 Loratadine 10 mg 05/21/20 09:42 05/24/20 08:15 Claritin PO 10 mg DAILYPRN PRN Administration Allergies Morphine Sulfate 4 mg 05/19/20 15:58 05/24/20 12:17 Morphine SLOW IVP 4 mg Q4H PRN Administration Moderate Pain (4-6) Pantoprazole Sodium 40 mg 05/21/20 21:00 05/24/20 08:16 Protonix IVP 40 mg BID YASMANI Administration Sodium Chloride 10 ml 05/18/20 09:00 05/24/20 08:16 Flush - Normal Saline IVF 10 ml Q12HR YASMANI Administration Sodium Chloride 10 ml 05/18/20 08:03 05/20/20 05:08 Flush - Normal Saline IVF 10 ml PRN PRN Administration Saline Flush Valacyclovir HCl 1,000 mg 05/23/20 21:00 05/24/20 08:15 Valtrex PO 1,000 mg BID YASMANI Administration - Exam General Appearance: NAD, awake alert Eye: PERRL, anicteric sclera Eye - other findings: veicles/scabs on eyelid ENT: normocephalic atraumatic, no oropharyngeal lesions Neck: supple, symmetric, no JVD Heart: RRR, no murmur, no gallops Respiratory: CTAB, no wheezes, no rales, no ronchi Gastrointestinal: soft, non-tender, non-distended, normal bowel sounds, no splenomegaly Extremities: no cyanosis, no clubbing, no edema Skin: normal turgor, no lesions, no rashes Skin - other findings: more dried scabs on face and chest/pustules. Bullae left arm and right arm Neurological: cranial nerve grossly intact, normal sensation to touch Musculoskeletal: normal tone, normal strength, no muscle wasting Psychiatric: normal affect, normal behavior, A&O x 3 Hosp A/P - Plan This is 24 year old male who presents with fever, decreased appetite, diffuse pustuar/vesicular rash #Diffuse pustular/vesicular rash - possibly shingles vs herpes gladiatorum vs impetigo/bacterial infection vs AGEP Vs pemphigus - was started on IV acyclovir, vanc and ceftriaxone initially - WBC improved from 38 to 14 - discontinued vancomycin and azithromycin. Ceftriaxone discontinued 05/23 - HSV serology and PCR negative, VZV serology and PCR still pending - continue oral valtrex - new bullous lesions noted on torso, left arm and right arm. IV steroids have been resumed - punch biopsy done on 05/22 is still pending - burn center has declined the patient - I will get opthalmology to evaluate patient given lesions on eyelids to rule out opthalmic involvement in the event that there is still varicella component to this Acute hypoxic respiratory failure -resolved #Odynophagia - likely secondary to viral infection - diet as tolerated #Anemia - stable, hemoglobin 12 - B12/folate normal #Acute Kidney Injury - creatinine up to 1.3. D/c IV acyclovir Dispo: f/u punch biopsy results, improvement in fever
[2020-05-24] MEDS: methylPREDNISolone Sod Succ 40 MG VIAL IVP SCH ×2 (13:41→21:20)
[2020-05-24] MEDS ORDERED: methylPREDNISolone Sod Succ 40 MG VIAL IVP SCH (14:00)
[2020-05-24 14:38] LABS: Varicella Zoster IgM ABS Less than 0.91 index (0.00-0.90)
--- NOTE | 2020-05-24 17:57 | PRG ---
DATE OF SERVICE: 05/24/2020 SUBJECTIVE: Mr. Merida is swallowing a little better. He is able to open his eyes today. He is having more blistering and less pustules, with positive Nikolsky sign. OBJECTIVE: VITAL SIGNS: The temperature is up to 103. His O2 saturations are okay at 94 to 98 on room air LUNGS: Clear. HEART: S1 and S2, regular rate. ABDOMEN: Soft. The back is somewhat spared compared with front. EXTREMITIES: The legs are somewhat spared as well. LABORATORY DATA: White cell count is 16,000, hemoglobin 11, and 43% bands. The VZV IgM was negative, biopsies pending. The VZV PCR is pending. ASSESSMENT AND DISCUSSION: Severe hypersensitivity skin reaction probably to drug that he took [place] [facility] an [place] that he described as a mood stabilizer, possibly valproic acid. 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 It seems like that he is turning the corner a little bit, so I think that we probably can keep him here for now. I restarted the corticosteroids. Job ID: [id number]
[2020-05-24 19:36] LABS: Varicella Zoster IgG ABS 790 index (Immune >165)
[2020-05-25] MEDS: methylPREDNISolone Sod Succ 40 MG VIAL IVP SCH ×3 (05:24→22:44)
[2020-05-25] MEDS: Morphine 4 MG/ML VIAL SLOW IVP PRN ×4 (05:25→20:06)
[2020-05-25] MEDS: Fentanyl 100 MCG/2 ML VIAL SLOW IVP PRN ×3 (06:30→15:51)
[2020-05-25] MEDS: Enoxaparin Sodium 40 MG/0.4 ML SYRINGE SC SCH (08:55)
[2020-05-25] MEDS: Pantoprazole 40 MG VIAL IVP SCH ×2 (08:55→20:09)
[2020-05-25] MEDS: Gabapentin 100 MG CAP PO SCH ×2 (08:55→20:09)
[2020-05-25] MEDS: valACYclovir 500 MG TAB PO SCH (08:56)
[2020-05-25] MEDS ORDERED: Multivit, Therapeutic 1 TAB PO SCH (15:15)
--- NOTE | 2020-05-25 17:16 | PQF ---
CLINICAL DOCUMENTATION IMPROVEMENT CLARIFICATION FORM: ICD-10 Updated PLEASE DO AN ADDENDUM TO THE PROGRESS NOTE WITH ANY DOCUMENTATION UPDATES OR ADDITIONS AND CARRY THROUGH TO DC SUMMARY. THANK YOU. DATE: 05/25/2020 05/26/2020 ATTN: Dr. Cates Please exercise your independent, professional judgment in responding to the clarification form. Clinical indicators are provided on the bottom of this form for your review Please check appropriate box(es): [ ] Sepsis due to: [ ] Severe sepsis with associated acute organ dysfunction: [ ] Acute Respiratory Failure [ ] Acute Kidney injury w/o ATN [ ] Additional/Other: please specify: [ ] Localized infection without sepsis [ X ] SIRS due to non-infectious process (please specify etiology) [ ] with organ dysfunction [ ] without organ dysfunction [ ] Other diagnosis [ ] Unable to determine In addition, please specify: Present on Admission (POA): [ X ] Yes [ ] No [ ] Unable to determine For continuity of documentation, please document condition throughout progress notes and discharge summary. Thank You. CLINICAL INDICATORS - SIGNS / SYMPTOMS / LABS / RESULTS AND LOCATION IN MR ER Record 05/17: VS: BP 152/86, Temp. 103.1, R 18, P 129 H&P 05/18 ([facility]) VS: temp. 100.4, Heart rate 124, resp. 18, O2 sat 95% RA, BP 107/64 Lab: WBC 16.3 A/P: Sepsis, unknown etiology, appears more systemic inflammatory response syndrome. 05/24 ([facility]) Diffuse pustular/vesicular rash -possibly shingles vs herpes gladiatorum vs impetigo/bacterial infection vs AGEP vs pemphigus -WBC improved from 38 to 14 RISKS: H&P 05/18 ([facility]) resides in retirement, comes into hosp. with generalized rash x1 day. 05/20 ([facility]) Diffuse pustular/vesicular rash. Acute Kidney Injury 05/21 ([facility]) Acute hypoxic respiratory failure. Odynophagia TREATMENT: H&P 05/18 ([facility]) A/P: will start him on acyclovir for now and also will start him on some vancomycin. ID Consult 05/18 Op Note 05/22: Punch biopsy, EMILY chest and RU chest 05/22 ([facility]) azithromycin, vancomycin dc'd by ID. 05/23 ([facility]) Ceftriaxone dc'd today -was getting IV acyclovir. (dc'd) MAR: Order 05/24 Solu-Medrol 20 mg IVP q8 hr Thank you, Diamond (This form is maintained as a part of the permanent medical record) 2014 [employer] All Rights Reserved Diamond Brito RN, BSN [email or web address] Cell [facility]
[2020-05-25 17:17] LABS: Hemoglobin 12.8 g/dL (14.0-18.0); Mean Corpuscular HGB CONC 33.6 g/dL (32.0-36.0); Mean Corpuscular Hemoglobin 31.9 pg (27.0-31.0); Mean Corpuscular Volume 95.1 fL (78.0-98.0); Platelet Count 386 thou/uL (130-400); Red Blood Cell (RBC) Count 4.01 mill/uL (4.70-6.10)
--- NOTE | 2020-05-25 17:26 | PDOC.HOSPP ---
- Subjective Encounter Date: 05/25/20 Encounter Time: 13:00 Subjective: THe patient has no new complaints. Mostly complains that he has trouble urinating because of all the blisters on his back. He has no trouble swallowing, was told that his eyes are fine. He does have headaches, some itching and burning. He just states "I want the blisters to go away." - Objective Vital Signs & Weight: Vital Signs (12 hours) Temp Pulse Resp BP Pulse Ox 05/25/20 15:30 98.7 F 98 18 138/63 97 05/25/20 12:00 98.5 F 93 18 135/54 L 95 05/25/20 08:50 97.7 F 89 18 117/56 L 95 05/25/20 08:35 95 Weight Admit Weight 235 lb Weight 235 lb I&O: 05/24/20 05/25/20 05/26/20 06:59 06:59 06:59 Intake Total 800 2200 Output Total 1550 2040 Balance -750 160 Result Diagrams: 05/25/20 17:04 05/24/20 09:22 Hospitalist ROS - Review of Systems Constitutional: denies: fever, chills - Medication Medications: Active Medications Generic Name Dose Route Start Last Admin Trade Name Freq PRN Reason Stop Dose Admin Acetaminophen 650 mg 05/18/20 07:57 05/24/20 09:50 Tylenol PO 650 mg Q4H PRN Administration Headache/Fever/Mild Pain (1-3) Al Hydroxide/Mg Hydroxide 60 0 ml 05/19/20 16:30 05/23/20 15:26 ml/ Lidocaine HCl 30 ml/ SSW 10 ml Diphenhydramine HCl 75 mg PRN PRN Administration Mouth Irritation Enoxaparin Sodium 40 mg 05/18/20 09:00 05/25/20 08:55 Lovenox SC 40 mg 0900 YASMANI Administration Fentanyl 50 mcg 05/23/20 12:00 05/25/20 15:51 Sublimaze SLOW IVP 50 mcg Q3H PRN Administration Severe Pain (7-10) Gabapentin 200 mg 05/23/20 21:00 05/25/20 08:55 Neurontin PO 200 mg BID YASMANI Administration Ibuprofen 600 mg 05/18/20 18:18 05/24/20 20:43 Motrin PO 600 mg Q6H PRN Administration Fever > 101 Loratadine 10 mg 05/21/20 09:42 05/24/20 20:43 Claritin PO 10 mg DAILYPRN PRN Administration Allergies Methylprednisolone Sodium Succinate 20 mg 05/24/20 14:00 05/25/20 14:58 Solu-Medrol IVP 20 mg Q8HR YASMANI Administration Morphine Sulfate 4 mg 05/19/20 15:58 05/25/20 15:00 Morphine SLOW IVP 4 mg Q4H PRN Administration Moderate Pain (4-6) Pantoprazole Sodium 40 mg 05/21/20 21:00 05/25/20 08:55 Protonix IVP 40 mg BID YASMANI Administration Sodium Chloride 10 ml 05/18/20 09:00 05/25/20 08:56 Flush - Normal Saline IVF 10 ml Q12HR YASMANI Administration Sodium Chloride 10 ml 05/18/20 08:03 05/20/20 05:08 Flush - Normal Saline IVF 10 ml PRN PRN Administration Saline Flush - Exam General Appearance: NAD, awake alert Eye: PERRL, anicteric sclera ENT: normocephalic atraumatic, no oropharyngeal lesions Neck: no JVD Heart: RRR, no murmur, no gallops, no rubs Respiratory: CTAB, no wheezes Gastrointestinal: soft, non-tender, non-distended, normal bowel sounds Extremities: no cyanosis, no clubbing, no edema Skin: normal turgor, no lesions, no rashes Skin - other findings: multiple scabs on face, pustules on torso starting to dry Neurological: cranial nerve grossly intact, normal sensation to touch, no focal deficits, no new deficit Musculoskeletal: normal tone, normal strength Psychiatric: normal affect, normal behavior, A&O x 3 Hosp A/P - Plan This is 24 year old male who presents with fever, decreased appetite, diffuse pustuar/vesicular rash #Diffuse pustular/vesicular rash - possibly shingles vs herpes gladiatorum vs impetigo/bacterial infection vs AGEP Vs pemphigus - was started on IV acyclovir, vanc and ceftriaxone initially. - antivirals and antibiotics have been discontinued. Valtrex discontinued today - steroids were started, then discontinued and resumed 05/24. WBC is up to 27 - no fevers today - HSV serology and PCR negative, VZV serology negative. PCR pending - punch biopsy is still not back yet, may not be back until Friday? - burn center declined the patient. Opthalmology - will order aquaphor to place on face lesions to try to peel skin crusts off and consider zinc ointment Acute hypoxic respiratory failure -resolved #Odynophagia - likely secondary to viral infection - diet as tolerated #Anemia - stable, hemoglobin 12 - B12/folate normal #HYponatremia #Transaminitis -sodium came down to 130. - consider IV fluids if LFTs are trending up still - hepatitis serology #Acute Kidney Injury - creatinine today pending Dispo: f/u punch biopsy results, improvement in fever
[2020-05-25 17:35] LABS: Anion Gap 17 mmol/L (10-20); BUN (Urea Nitrogen) 22 mg/dL (8.9-20.6); Bilirubin, Total 0.4 mg/dL (0.2-1.2); Calc. Creatinine Clearance 180 mL/min (70-130); Calcium 8.7 mg/dL (7.8-10.44); Carbon Dioxide 22 mmol/L (22-29); Chloride 100 mmol/L (98-107); Estimated GFR-MDRD Greater than 90; Glucose 125 mg/dL (70-105); Potassium 4.7 mmol/L (3.5-5.1); Sodium 134 mmol/L (136-145)
[2020-05-25 17:36] LABS: ALT (SGPT) 78 U/L (8-55); AST (SGOT) 87 U/L (5-34); Albumin 3.4 g/dL (3.5-5.0); Alkaline Phosphatase 66 U/L (40-110); Globulin 3.4 g/dL (2.4-3.5); Protein, Total 6.8 g/dL (6.0-8.3)
[2020-05-25] MEDS ORDERED: Oxybutynin 5 MG TAB PO PRN (19:39)
[2020-05-25] MEDS: Ibuprofen 600 MG TAB PO PRN (20:10)
[2020-05-25] MEDS ORDERED: diphenhydrAMINE 25 MG CAP PO PRN (20:29)
[2020-05-25] MEDS ORDERED: Zolpidem Tartrate 5 MG TAB PO PRN (20:29)
[2020-05-25] MEDS ORDERED: Promethazine HCl 25 MG/ML VIAL IM PRN (20:29)
[2020-05-25] MEDS ORDERED: diphenhydrAMINE 50 MG/ML VIAL IVP PRN (20:29)
[2020-05-25] MEDS ORDERED: Ondansetron PF 4 MG/2 ML Vial IVP PRN (20:29)
[2020-05-25] MEDS ORDERED: diphenhydrAMINE 50 MG/ML VIAL IM PRN (20:29)
[2020-05-25] MEDS ORDERED: Naloxone HCl 0.4 mg/ml Vial IV PRN (20:29)
[2020-05-25] MEDS ORDERED: Communication Order-Pharmacy FS SCH (20:30)
[2020-05-25] MEDS: HYDROmorphone 10 mg/100 ml CADD IVPB PRN ×2 (21:53→23:07)
[2020-05-26] MEDS ORDERED: Promethazine HCl 25 MG/ML VIAL SLOW IVP PRN (01:31)
[2020-05-26] MEDS: HYDROmorphone 10 mg/100 ml CADD IVPB PRN (01:38)
[2020-05-26] MEDS ORDERED: Promethazine HCl 25 MG/ML VIAL SLOW IVP SCH (01:45)
[2020-05-26 04:50] LABS: Hemoglobin 12.1 g/dL (14.0-18.0); Mean Corpuscular HGB CONC 33.2 g/dL (32.0-36.0); Mean Corpuscular Hemoglobin 31.9 pg (27.0-31.0); Mean Platelet Volume 9.6 fL (7.4-10.4); Platelet Count 405 thou/uL (130-400); Red Blood Cell (RBC) Count 3.78 mill/uL (4.70-6.10); White Blood Cell (WBC) Count 26.7 thou/uL (4.8-10.8)
[2020-05-26 05:09] LABS: Anion Gap 14 mmol/L (10-20); BUN (Urea Nitrogen) 30 mg/dL (8.9-20.6); Calc. Creatinine Clearance 161 mL/min (70-130); Calcium 8.2 mg/dL (7.8-10.44); Carbon Dioxide 25 mmol/L (22-29); Chloride 99 mmol/L (98-107); Estimated GFR-MDRD 85; Glucose 160 mg/dL (70-105); Potassium 4.6 mmol/L (3.5-5.1); Sodium 133 mmol/L (136-145)
[2020-05-26 05:14] LABS: ALT (SGPT) 77 U/L (8-55); AST (SGOT) 81 U/L (5-34); Albumin 3.3 g/dL (3.5-5.0); Alkaline Phosphatase 60 U/L (40-110); Bilirubin, Direct 0.2 mg/dL (0.1-0.3); Bilirubin, Total 0.4 mg/dL (0.2-1.2); Protein, Total 6.4 g/dL (6.0-8.3)
[2020-05-26] MEDS: methylPREDNISolone Sod Succ 40 MG VIAL IVP SCH ×2 (05:25→13:31)
[2020-05-26 05:29] LABS: HBCM Index 0.08 S/CO (0-0.79); HBSAg Index 0.22 S/CO (0-0.99); Hep A IgM AB Non-Reactive (NonReactive); Hep A IgM S/CO 0.11 S/CO (0-0.79); Hep B Surf Ag Non-Reactive S/CO (NonReactive); Hep C IgG Ab Non-Reactive (NonReactive); Hep C Index 0.06 S/CO (0-0.79); Hepatitis B Core IgM Abs Non-Reactive (NonReactive)
[2020-05-26] MEDS ORDERED: Multivit, Therapeutic 1 TAB PO SCH (09:00)
[2020-05-26] MEDS: Pantoprazole 40 MG VIAL IVP SCH (09:15)
[2020-05-26] MEDS: Enoxaparin Sodium 40 MG/0.4 ML SYRINGE SC SCH (09:15)
[2020-05-26] MEDS: Gabapentin 100 MG CAP PO SCH (09:15)
[2020-05-26 10:37] LABS: ANA Symphony (Qualitative) Negative (Negative); ANA Symphony (Quantitative) 0.1 Ratio (< 0.7 Negative); dsDNA IgG Antibody 0.5 IU/mL (<10 Negative)
[2020-05-26] MEDS: Fentanyl 100 MCG/2 ML VIAL SLOW IVP PRN ×2 (13:46→17:06)
[2020-05-26 14:46] LABS: Cytoplasmic (C-ANCA) <1:20 titer (Neg:<1:20); Myeloperoxidase AutoAbs <9.0 U/mL (0.0-9.0); Perinuclear (P-ANCA) <1:20 titer (Neg:<1:20); Proteinase-3 AutoAbs Less than 3.5 U/mL (0.0-3.5)
[2020-05-26 15:55] VITALS: BP 148/97; TEMP 98.3
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
== END 2020-05-26 18:20 | disposition short-term general hospital (02) | DRG 595 ==
LOC: ERS 22:07 → EEVIPCON 22:07 → OBSVTOIN 05-18 02:20 → SURG B 05-18 02:20 → 2SW 05-18 10:05
PROVIDERS: ADMIT Internal Medicine; ATTEND Internal Medicine
PROC: 0HB5XZX Excision of Chest Skin, External Approach, Diagnostic (ICD-10-PCS; principal; 2020-05-18)
DX: L51.2 Toxic epidermal necrolysis [Lyell] (principal); J96.01 Acute respiratory failure with hypoxia; R65.10 Systemic inflammatory response syndrome (SIRS) of non-infectious origin without acute organ dysfunction; N17.9 Acute kidney failure, unspecified; B01.9 Varicella without complication; E87.1 Hypo-osmolality and hyponatremia; Z20.828 Contact with and (suspected) exposure to other viral communicable diseases; B02.9 Zoster without complications; L53.8 Other specified erythematous conditions; T42.6X5A Adverse effect of other antiepileptic and sedative-hypnotic drugs, initial encounter; R13.10 Dysphagia, unspecified; D64.9 Anemia, unspecified; L27.0 Generalized skin eruption due to drugs and medicaments taken internally; F17.210 Nicotine dependence, cigarettes, uncomplicated; Z90.49 Acquired absence of other specified parts of digestive tract; Z79.899 Other long term (current) drug therapy
CPT/HCPCS: 36415; 71045; 80048; 80053; 80074; 80076; 80164; 80202; 80306; 81003; 82607; 82728; 82746; 83520; 83605; 84145; 85025; 85027; 86038; 86225; 86256; 86694; 86695; 86696; 86780; 86787; 87040; 87070; 87086; 87205; 87389; 87529; 87635; 87798; 88305; 88321; 93005; 93010; 96360; 96361; 96372; 96374; 96375; 96376; C9113; G0378; J0133; J0456; J0696; J1200; J1650; J2001; J2270; J2405; J2550; J2920; J3010; J3370; J3490; J7030; J7050; Q0163; U0002; U0003